=== PATIENT | female | born 1960 | race Hispanic/Latino ===

== ENCOUNTER 2019-08-24 17:10 | Inpatient (IN) | payer OTHER ==
[~2019-08-24] VITALS: Ht 157.5 cm; Wt 122.7 kg
[2019-08-24] MEDS ORDERED: ACETAMINOPHEN EXTRA STRENGTH 500 MG TABLET ONE (17:35)
[2019-08-24 17:40] LABS: BASOPHILS % (AUTO) 0.5 % (0.0-5.0); EOSINOPHILS % (AUTO) 0.1 % (0.0-8.0); HEMATOCRIT 40.2 % (36-48); LYMPHOCYTES % (AUTO) 5.6 % (21.0-51.0); MEAN CORPUSCULAR HEMOGLOBIN 30.7 pg (27.0-33.0); MEAN CORPUSCULAR HGB CONC 34.6 g/dL (32.0-36.0); MEAN CORPUSCULAR VOLUME 88.7 fL (79-99); NEUTROPHILS % (AUTO) 90.1 % (40.0-77.0); PLATELET COUNT (AUTO) 143 K/uL (130-400); RED BLOOD CELL COUNT(AUTO) 4.53 MIL/uL (4.00-5.50); RED CELL DISTRIBUTION WIDTH 13.1 % (11.0-15.5)
[2019-08-24 17:56] LABS: CREATININE 1.5 mg/dL (0.5-1.5)
[2019-08-24 17:59] LABS: BAND NEUTROPHILS % (MANUAL) 18 % (0-2); LYMPHOCYTES % (MANUAL) 2 % (22-44); MONOCYTES % (MANUAL) 2 % (2-9); SEGMENTED NEUTROPHILS % 78 % (40-70)
[2019-08-24 18:00] LABS: MAN.DIFF COMMENT-IMPRESSION MANUAL DIFFERENTIAL; PLATELET MORPHOLOGY COMMENT ADEQUATE
[2019-08-24 18:01] LABS: BILIRUBIN,TOTAL 2.1 mg/dL (0.2-1.0); TOTAL PROTEIN, SERUM 7.7 g/dL (6.0-8.3)
[2019-08-24] MEDS ORDERED: ZOSYN 3.375GM+NS 50ML 50 ML IV ONE (18:36)
[2019-08-24 19:05] LABS: BILIRUBIN,URINE MODERATE (NEGATIVE); GLUCOSE, URINE (UA) 100 mg/dL (NEGATIVE); KETONES,URINE 5 mg/dL (NEGATIVE); LEUKOCYTE ESTERASE ,URINE SMALL (NEGATIVE); NITRATE,URINE POSITIVE (NEGATIVE); OCCULT BLOOD,URINE LARGE (NEGATIVE); PROTEIN,URINE >=300 mg/dL (NEGATIVE)
[2019-08-24 19:06] LABS: APPEARANCE,URINE SLIGHTLY CLOUDY (CLEAR); COLOR,URINE DARK YELLOW (YELLOW)
[2019-08-24 19:21] LABS: BACTERIA,URINE Many /HPF (None Seen); WBC,URINE >100 /HPF (0-1)
[2019-08-24 19:25] LABS: MUCUS,URINE Few LPF (None Seen)
[2019-08-24] MEDS ORDERED: DEXTROSE 50%-WATER 50 ML DISP.SYRIN IV PRN (20:45)
[2019-08-24] MEDS ORDERED: GLUCAGON 1MG KIT 1 MG ML IM PRN (20:45)
[2019-08-24] MEDS ORDERED: ONDANSETRON HCL 4 MG/2 ML VIAL IVP PRN (21:00)
[2019-08-24] MEDS ORDERED: ZOSYN 3.375GM+NS 50ML 50 ML IV SCH (21:00)
[2019-08-24 21:10] VITALS: BP 99/71
[2019-08-24] MEDS: SODIUM CHLORIDE 0.9% 1000ML 1,000 ML IV SCH (22:41)
[2019-08-24] MEDS: INSULIN R PO SS1 SQ SCH (23:54)
[2019-08-25] VITALS (7 sets, daily range): BP systolic 93–159; BP diastolic 54–74
[2019-08-25] MEDS ORDERED: OMEP40CA13 PO (00:47)
[2019-08-25] MEDS ORDERED: METF-446 PO (00:47)
[2019-08-25] MEDS ORDERED: HYDR12.54 PO (00:47)
[2019-08-25] MEDS: ZOSYN 3.375GM+NS 50ML 50 ML IV SCH ×3 (01:25→17:30)
[2019-08-25 05:11] LABS: HEMATOCRIT 34.9 % (36-48); MEAN CORPUSCULAR HGB CONC 34.1 g/dL (32.0-36.0); MEAN CORPUSCULAR VOLUME 90.9 fL (79-99); PLATELET COUNT (AUTO) 139 K/uL (130-400); RED BLOOD CELL COUNT(AUTO) 3.84 MIL/uL (4.00-5.50); RED CELL DISTRIBUTION WIDTH 13.2 % (11.0-15.5); WHITE BLOOD COUNT (AUTO) 17.9 K/uL (4.8-10.8)
[2019-08-25 05:27] LABS: CREATININE 1.4 mg/dL (0.5-1.5); POTASSIUM 3.8 mmol/L (3.5-5.1)
[2019-08-25] MEDS: INSULIN R PO SS1 SQ SCH ×4 (06:55→20:58)
[2019-08-25] MEDS: ACETAMINOPHEN 325 MG TAB PO PRN (07:04)
[2019-08-25] MEDS: FAMOTIDINE 20MG TAB 20 MG TAB PO SCH (10:20)
[2019-08-25] MEDS: AZITHROMYCIN 500MG+NS 250ML 250 ML IV SCH (10:32)
--- NOTE | 2019-08-25 15:14 | NUR ---
cm note pt states resides at home alone, states mom assists she lives a block away. pt independent with ambulation and adls. no dme. no services. pt drives. dc plan is back home. no dc needs. Addendum: 08/25/19 at 1518 by CHE CEDEÑO Amended: Links added.
[2019-08-26] MEDS: SODIUM CHLORIDE 0.9% 1000ML 1,000 ML IV SCH ×2 (00:07→09:21)
[2019-08-26] MEDS: ZOSYN 3.375GM+NS 50ML 50 ML IV SCH ×3 (02:40→16:02)
[2019-08-26 03:51] VITALS: BP 106/75
[2019-08-26 05:36] LABS: HEMATOCRIT 35.4 % (36-48); MEAN CORPUSCULAR HEMOGLOBIN 30.5 pg (27.0-33.0); MEAN CORPUSCULAR HGB CONC 33.6 g/dL (32.0-36.0); MEAN CORPUSCULAR VOLUME 90.8 fL (79-99); PLATELET COUNT (AUTO) 127 K/uL (130-400); RED CELL DISTRIBUTION WIDTH 13.4 % (11.0-15.5); WHITE BLOOD COUNT (AUTO) 11.8 K/uL (4.8-10.8)
[2019-08-26 06:06] LABS: CREATININE 1.2 mg/dL (0.5-1.5)
[2019-08-26] MEDS: INSULIN R PO SS1 SQ SCH ×4 (06:27→21:01)
[2019-08-26 08:00] VITALS: BP 140/80
[2019-08-26] MEDS: AZITHROMYCIN 500MG+NS 250ML 250 ML IV SCH (09:22)
[2019-08-26] MEDS: FAMOTIDINE 20MG TAB 20 MG TAB PO SCH (09:22)
[2019-08-26 12:00] VITALS: BP 123/79
[2019-08-26] MEDS: ACETAMINOPHEN 325 MG TAB PO PRN (12:51)
[2019-08-26 16:00] VITALS: BP 128/64
[2019-08-26 20:00] VITALS: BP 115/75
[2019-08-27] VITALS (7 sets, daily range): BP systolic 90–145; BP diastolic 50–82
[2019-08-27] MEDS: ACETAMINOPHEN 325 MG TAB PO PRN ×2 (00:54→11:49)
[2019-08-27] MEDS ORDERED: IBUPROFEN 600 MG TABLET PO PRN (01:00)
--- NOTE | 2019-08-27 01:45 | NUR ---
FEVER 0040: PATIENT TEMPERATURE AT 103.6 ORAL, Kera COSBY PAGED VIA ANSWERING SERVICE AT THIS TIME. 0046: KERA COSBY RETURNED THE CALL INFORMED HIM OF PATIENT'S ELEVATED TEMPERATURE AFTER LETTING HIM KNOW WHY PATIENT IN THE HOSPITAL, ANTIBIOTICS SHE IS ON, AND ANY CULTURES COLLECTED. ORDERS RECEIVED TO ADMINISTER TYLENOL OR MOTRIN FOR FEVER. ALSO TO DO A RAPID FLU LAB AT THIS TIME. PATIENT MADE AWARE, VERBALIZED UNDERSTANDING. 0145: RECHECKED TEMPERATURE ONE HOUR AFTER TYLENOL DOWN TO 98.7 ORAL. FLU COLLECTED AT 0110.
[2019-08-27] MEDS: SODIUM CHLORIDE 0.9% 1000ML 1,000 ML IV SCH ×2 (01:50→20:40)
[2019-08-27] MEDS: ZOSYN 3.375GM+NS 50ML 50 ML IV SCH ×2 (02:08→09:29)
[2019-08-27 05:32] LABS: HEMATOCRIT 33.3 % (36-48); MEAN CORPUSCULAR HEMOGLOBIN 30.5 pg (27.0-33.0); MEAN CORPUSCULAR HGB CONC 34.2 g/dL (32.0-36.0); PLATELET COUNT (AUTO) 104 K/uL (130-400); RED BLOOD CELL COUNT(AUTO) 3.74 MIL/uL (4.00-5.50); RED CELL DISTRIBUTION WIDTH 13.2 % (11.0-15.5); WHITE BLOOD COUNT (AUTO) 7.5 K/uL (4.8-10.8)
[2019-08-27] MEDS: INSULIN R PO SS1 SQ SCH ×4 (06:00→20:39)
[2019-08-27] MEDS: FAMOTIDINE 20MG TAB 20 MG TAB PO SCH (09:06)
[2019-08-27] MEDS ORDERED: AZITHROMYCIN 500MG+NS 250ML 250 ML IV SCH (09:30)
[2019-08-27] MEDS ORDERED: LEVO500T2 PO (12:17)
[2019-08-27] MEDS: AZITHROMYCIN 500MG+NS 250ML 250 ML IV SCH (12:40)
[2019-08-27] MEDS: MEROPENEM 1 GM VIAL IVP SCH ×2 (13:30→23:36)
[2019-08-28] MEDS: SODIUM CHLORIDE 0.9% 1000ML 1,000 ML IV SCH ×2 (04:01→17:43)
[2019-08-28 04:02] VITALS: BP 118/75
[2019-08-28] MEDS: INSULIN R PO SS1 SQ SCH ×4 (04:52→21:00)
[2019-08-28 07:30] VITALS: BP 140/81
[2019-08-28 08:19] LABS: HEMATOCRIT 32.3 % (36-48); MEAN CORPUSCULAR HEMOGLOBIN 30.1 pg (27.0-33.0); MEAN CORPUSCULAR HGB CONC 34.4 g/dL (32.0-36.0); MEAN CORPUSCULAR VOLUME 87.5 fL (79-99); PLATELET COUNT (AUTO) 119 K/uL (130-400); RED BLOOD CELL COUNT(AUTO) 3.69 MIL/uL (4.00-5.50); WHITE BLOOD COUNT (AUTO) 8.3 K/uL (4.8-10.8)
[2019-08-28 08:33] LABS: POTASSIUM 3.1 mmol/L (3.5-5.1)
[2019-08-28] MEDS: FAMOTIDINE 20MG TAB 20 MG TAB PO SCH (09:22)
[2019-08-28 11:00] VITALS: BP 125/86
[2019-08-28] MEDS: MEROPENEM 1 GM VIAL IVP SCH (13:59)
[2019-08-28] MEDS: AZITHROMYCIN 500MG+NS 250ML 250 ML IV SCH (13:59)
[2019-08-28 16:00] VITALS: BP 118/66
[2019-08-28 20:00] VITALS: BP 131/76
[2019-08-29] VITALS: BP 124/72
[2019-08-29] MEDS: MEROPENEM 1 GM VIAL IVP SCH ×2 (01:14→13:05)
[2019-08-29 04:58] VITALS: BP 111/48
[2019-08-29 05:27] LABS: HEMATOCRIT 32.8 % (36-48); MEAN CORPUSCULAR HEMOGLOBIN 30.7 pg (27.0-33.0); MEAN CORPUSCULAR HGB CONC 35.1 g/dL (32.0-36.0); MEAN CORPUSCULAR VOLUME 87.7 fL (79-99); PLATELET COUNT (AUTO) 151 K/uL (130-400); RED BLOOD CELL COUNT(AUTO) 3.74 MIL/uL (4.00-5.50); RED CELL DISTRIBUTION WIDTH 12.8 % (11.0-15.5); WHITE BLOOD COUNT (AUTO) 8.9 K/uL (4.8-10.8)
[2019-08-29 06:00] LABS: CREATININE 0.9 mg/dL (0.5-1.5); POTASSIUM 3.1 mmol/L (3.5-5.1)
[2019-08-29] MEDS: INSULIN R PO SS1 SQ SCH ×2 (06:38→11:30)
[2019-08-29 07:30] VITALS: BP 120/72
[2019-08-29] MEDS: FAMOTIDINE 20MG TAB 20 MG TAB PO SCH (09:30)
[2019-08-29 11:00] VITALS: BP 140/82
[2019-08-29] MEDS: AZITHROMYCIN 500MG+NS 250ML 250 ML IV SCH (13:05)
== END 2019-08-29 17:30 | disposition home or self-care (01) | DRG 871 ==
LOC: EDH 17:10 → EDHIP 17:11 → 3DH 21:06
PROVIDERS: ADMIT Internal Medicine; ATTEND Internal Medicine
DX: A41.9 Sepsis, unspecified organism (principal); J18.9 Pneumonia, unspecified organism; N39.0 Urinary tract infection, site not specified; E44.0 Moderate protein-calorie malnutrition; Z68.42 Body mass index [BMI] 45.0-49.9, adult; E11.22 Type 2 diabetes mellitus with diabetic chronic kidney disease; B96.20 Unspecified Escherichia coli [E. coli] as the cause of diseases classified elsewhere; B96.89 Other specified bacterial agents as the cause of diseases classified elsewhere; I12.9 Hypertensive chronic kidney disease with stage 1 through stage 4 chronic kidney disease, or unspecified chronic kidney disease; N18.9 Chronic kidney disease, unspecified; Z79.84 Long term (current) use of oral hypoglycemic drugs; E66.9 Obesity, unspecified
CPT/HCPCS: 36415; 71045; 80048; 80053; 81001; 82948; 83605; 85025; 85027; 87040; 87077; 87088; 87186; 87804; 93005; 99291; G0378; J0456; J1815; J2185; J2543; J7030